=== PATIENT | female | born 1930 | race Caucasian/White ===

== ENCOUNTER 2017-11-21 18:09 | Emergency (ER) | payer MEDICARE, OTHER ==
[~2017-11-21] VITALS: Ht 162.6 cm; Wt 102.1 kg
--- NOTE | 2017-11-21 19:10 | RAD ---
PQRS Compliance Statement: One or more of the following individualized dose reduction techniques were utilized for this examination: 1. Automated exposure control 2. Adjustment of the mA and/or kV according to patient size 3. Use of iterative reconstruction technique CT head and cervical spine without contrast 11/21/2017 6:42 PM INDICATION: Fall with head and neck pain. History of vascular disease. COMPARISON: None available TECHNIQUE: Multiple axial CT images of the head were obtained from skull base through the vertex without intravenous contrast. Multiple axial CT images of the cervical spine were obtained without intravenous contrast. Coronal and sagittal reformats are provided. FINDINGS: Head: Ventricles, sulci and basal cisterns are mildly prominent compatible with generalized cerebral volume loss. Low-attenuation in the periventricular white matter is suggestive of chronic small vessel ischemic changes. There is no hydrocephalus. Ma-white matter differentiation is normal. There is no acute intracranial hemorrhage. There is minimal prominence of the right frontal extra-axial space with attenuation similar to that of CSF. This may represent a prominent extra-axial space versus subdural hygroma. There is no mass, mass effect or midline shift. Posterior fossa is normal in appearance. Visualized portions of the orbits are normal with exception of bilateral lens replacement. Paranasal sinuses are well aerated. Mastoid air cells are well aerated. Scalp and calvaria are normal. Cervical spine: Skull base is intact. Craniocervical junction is normal in appearance. Atlantoaxial articulation is normal. Vertebral body heights are maintained without evidence for acute fracture. There is minimal retrolisthesis of C4 on C5. There is moderate to advanced disc height loss at C3-C4, C4-C5, C5-C6 and C6-C7. There is osseous fusion of the facet joints at C2-C3 on the right. At C3-C4, there is a posterior disc osteophyte complex asymmetric to the left with moderate facet arthropathy and advanced uncovertebral joint disease resulting in severe left neuroforaminal stenosis and mild spinal canal stenosis. At C4-C5, there is a posterior disc osteophyte complex with severe left and moderate right facet arthropathy and severe left and moderate right uncovertebral joint disease resulting in moderate to severe left neuroforaminal stenosis. At C5-C6, there is a posterior disc osteophyte complex with mild to moderate facet arthropathy and moderate uncovertebral joint disease resulting in moderate bilateral neuroforaminal stenosis and mild spinal canal stenosis. There is no prevertebral soft tissue swelling. There is retropharyngeal course of the right common carotid artery. Thyroid gland is normal in appearance. Visualized portions of the lung apices are normal without evidence for suspicious pulmonary nodule or infiltrate. IMPRESSION: 1. No acute intracranial hemorrhage. Mild generalized cerebral volume loss is identified. Low-attenuation in the periventricular white matter is suggestive of chronic small vessel ischemic changes. There is minimal prominence of the right frontal extra-axial space with attenuation similar to that of CSF. This may represent a prominent extra-axial space versus subdural hygroma. 2. No acute fracture of the cervical spine. There is minimal anterolisthesis of C4 on C5. There is moderate to advanced cervical spondylosis. Electronically signed by: Melissa Luu MD (11/21/2017 7:06 PM) [facility]
--- NOTE | 2017-11-21 19:56 | PHYS DOC ---
Past History Past Medical History: GERD, Other Past Surgical History: Lumbar Laminectomy Alcohol Use: None Drug Use: None Adult General Chief Complaint Chief Complaint: MECHANICAL FALL HPI HPI 87-year-old female presents with report of mechanical slip and fall just prior to arrival when patient was getting ready to go into local [facility]. Patient reports she ended up missing the curb and fell onto left side of her face. Reports ended up landing on left side of her face. Denies LOC. Reports some neck pain which was present prior to patient's fall. Reports use of aspirin. Also reports some pain to left knee and base of left thumb. Review of Systems Review of Systems Constitutional: Denies fever or chills [] Eyes: Denies change in visual acuity, redness, or eye pain [] HENT: Denies epistaxis or bleeding from ears, chipped left front tooth, abrasion to left upper lip Respiratory: Denies cough or shortness of breath [] Cardiovascular: Denies chest pain or palpitations or syncope GI: Denies abdominal pain, nausea, vomiting, bloody stools or diarrhea [] : Denies dysuria or hematuria [] Musculoskeletal: Reports some neck pain. Denies back pain. Denies deformity. Reports left knee pain and pain to base of left thumb. Integument: Denies laceration. Reports ecchymosis to left thumb. Reports abrasions to left knee. Neurologic: Reports headache; denies focal weakness or sensory changes [] Complete systems were reviewed and found to be within normal limits, except as documented in this note. Current Medications Current Medications Current Medications Medications (Trade) Dose Ordered Sig/Ginny Start Time Stop Time Status Last Admin Dose Admin Acetaminophen (Tylenol) 650 mg 1X ONCE 11/21/17 20:00 11/21/17 20:01 Allergies Allergies Allergies Coded Allergies Type Severity Reaction Last Updated Verified gabapentin Allergy Intermediate 11/21/17 Yes morphine Allergy Unknown 11/21/17 Yes Physical Exam Physical Exam Constitutional: Well developed, well nourished, no acute distress HENT: Normocephalic, bilateral external ears normal, oropharynx moist, nose normal. [] Eyes: PERRL, EOMI, conjunctiva normal, no discharge; chipped left maxillary lateral incisor, teeth otherwise intact, upper lip with abrasion, NO laceration , abrasion and swelling contained to mucosal surface Neck: Normal range of motion, Paraspinal tenderness noted[] Cardiovascular: Heart rate regular rhythm, no murmur [] Lungs & Thorax: Bilateral breath sounds clear to auscultation [] Abdomen: Soft, no tenderness Skin: Warm, dry, small abrasion to left knee, ecchymosis noted to base of left hand Back: No midline tenderness. Extremities: Pelvis stable, Nontender; NO deformity. Left hand with pain on palpation of left 1st metacarpal; Tenderness to left patella, Knee stable. Neurologic: Alert and oriented X 3, normal motor function, normal sensory function, no focal deficits noted. [] Psychologic: Affect normal, judgement normal, mood normal. [] Current Patient Data Vital Signs Vital Signs Date Time Temp Pulse Resp B/P (MAP) Pulse Ox O2 Delivery O2 Flow Rate FiO2 11/21/17 18:21 98.2 70 18 96 Room Air EKG EKG [] Radiology/Procedures Radiology/Procedures PROCEDURE: CT HEAD AND CERVICAL SPINE [facility] Compliance Statement: One or more of the following individualized dose reduction techniques were utilized for this examination: 1. Automated exposure control 2. Adjustment of the mA and/or kV according to patient size 3. Use of iterative reconstruction technique CT head and cervical spine without contrast 11/21/2017 6:42 PM INDICATION: Fall with head and neck pain. History of vascular disease. COMPARISON: None available TECHNIQUE: Multiple axial CT images of the head were obtained from skull base through the vertex without intravenous contrast. Multiple axial CT images of the cervical spine were obtained without intravenous contrast. Coronal and sagittal reformats are provided. FINDINGS: Head: Ventricles, sulci and basal cisterns are mildly prominent compatible with generalized cerebral volume loss. Low-attenuation in the periventricular white matter is suggestive of chronic small vessel ischemic changes. There is no hydrocephalus. Ma-white matter differentiation is normal. There is no acute intracranial hemorrhage. There is minimal prominence of the right frontal extra-axial space with attenuation similar to that of CSF. This may represent a prominent extra-axial space versus subdural hygroma. There is no mass, mass effect or midline shift. Posterior fossa is normal in appearance. Visualized portions of the orbits are normal with exception of bilateral lens replacement. Paranasal sinuses are well aerated. Mastoid air cells are well aerated. Scalp and calvaria are normal. Cervical spine: Skull base is intact. Craniocervical junction is normal in appearance. Atlantoaxial articulation is normal. Vertebral body heights are maintained without evidence for acute fracture. There is minimal retrolisthesis of C4 on C5. There is moderate to advanced disc height loss at C3-C4, C4-C5, C5-C6 and C6-C7. There is osseous fusion of the facet joints at C2-C3 on the right. At C3-C4, there is a posterior disc osteophyte complex asymmetric to the left with moderate facet arthropathy and advanced uncovertebral joint disease resulting in severe left neuroforaminal stenosis and mild spinal canal stenosis. At C4-C5, there is a posterior disc osteophyte complex with severe left and moderate right facet arthropathy and severe left and moderate right uncovertebral joint disease resulting in moderate to severe left neuroforaminal stenosis. At C5-C6, there is a posterior disc osteophyte complex with mild to moderate facet arthropathy and moderate uncovertebral joint disease resulting in moderate bilateral neuroforaminal stenosis and mild spinal canal stenosis. There is no prevertebral soft tissue swelling. There is retropharyngeal course of the right common carotid artery. Thyroid gland is normal in appearance. Visualized portions of the lung apices are normal without evidence for suspicious pulmonary nodule or infiltrate. IMPRESSION: 1. No acute intracranial hemorrhage. Mild generalized cerebral volume loss is identified. Low-attenuation in the periventricular white matter is suggestive of chronic small vessel ischemic changes. There is minimal prominence of the right frontal extra-axial space with attenuation similar to that of CSF. This may represent a prominent extra-axial space versus subdural hygroma. 2. No acute fracture of the cervical spine. There is minimal anterolisthesis of C4 on C5. There is moderate to advanced cervical spondylosis. Electronically signed by: Melissa Luu MD (11/21/2017 7:06 PM) [facility] LEFT KNEE XR and LEFT HAND XR: Preliminary interpretation by ED physician. No acute fracture or dislocation.. Course & Med Decision Making Course & Med Decision Making Pertinent Labs and Imaging studies reviewed. (See chart for details) Patient presents with report of mechanical slip and fall striking the left side of her face. Patient noted to have small abrasion to left upper lip. No laceration crossing the vermilion border. Patient does have a chipped lateral incisor on left. Patient does report use of aspirin daily. Patient neurologically intact. Patient also complaining of left thumb tenderness at base as well as left knee pain. CT head/maxillofacial/cervical spine without acute process. X-rays of left hand and left knee also without fracture or dislocation. Daniel wrap is applied to hand and knee. Symptomatic treatment provided. Patient stable for discharge with outpatient follow-up with PCP. Discussed findings and plan with patient and family, who acknowledge understanding and agreement. Dragon Disclaimer Dragon Disclaimer This electronic medical record was generated, in whole or in part, using a voice recognition dictation system. Departure Departure: Impression: Primary Impression: Fall Additional Impressions: Contusion of lip Hand sprain Knee contusion Chipped tooth Disposition: HOME, SELF-CARE Condition: STABLE Referrals: PCP,NO (PCP) Patient Instructions: Contusion, [id number], Fall Prevention and Home Safety , [id number], Thumb Sprain, Tooth Fracture Scripts Chlorhexidine Gluconate (PERIDEX) 15 Ml Mouthwash 15 ML PO BID, #946 ML Prov: AURELIA MCNAMARA DO 11/21/17 Amoxicillin/Potassium Clav (AUGMENTIN 875-125 TABLET) 1 Each Tablet 1 TAB PO BID, #14 TAB Prov: AURELIA MCNAMARA DO 11/21/17 Problem Qualifiers Primary Impression: Fall Encounter type: initial encounter Qualified Codes: W19.XXXA - Unspecified fall, initial encounter Additional Impressions: Contusion of lip Encounter type: initial encounter Qualified Codes: S00.531A - Contusion of lip, initial encounter Hand sprain Encounter type: initial encounter Laterality: left Qualified Codes: S63.92XA - Sprain of unspecified part of left wrist and hand, initial encounter Knee contusion Encounter type: initial encounter Laterality: left Qualified Codes: S80.02XA - Contusion of left knee, initial encounter Chipped tooth Encounter type: initial encounter Fracture type: open Qualified Codes: S02.5XXB - Fracture of tooth (traumatic), initial encounter for open fracture AURELIA MCNAMARA DO Nov 21, 2017 19:56
[2017-11-21] MEDS ORDERED: ACETAMINOPHEN 325 MG TABLET PO ONE (20:00)
[2017-11-21] MEDS ORDERED: AMOX1TAB61 PO (20:03)
[2017-11-21] MEDS ORDERED: CHLO15MO2 PO (20:03)
[2017-11-21 20:24] VITALS: BP 146/65
--- NOTE | 2017-11-22 07:47 | RAD ---
Examination: 3 views of the left hand HISTORY: History of pain status post fall COMPARISON: None available FINDINGS: The alignment of the carpal metacarpal joints, metacarpophalangeal joints, interphalangeal grossly appears unremarkable. There is moderate joint space loss identified in the carpal metacarpal joint, first metacarpophalangeal joint and the third metacarpophalangeal joint likely degeneration. Mild degenerative changes identified in the interphalangeal joints. No obvious acute fracture identified. 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 IMPRESSION: 1. No acute osseous findings. 2. Degenerative changes. Chondrocalcinosis of the triangular fibrocartilage. Electronically signed by: Agustin Aranda MD (11/22/2017 7:44 AM) [facility]
--- NOTE | 2017-11-22 07:49 | RAD ---
Examination: 3 views of the left knee HISTORY: History of fall, pain COMPARISON: None available FINDINGS: The alignment of the knee joint grossly appears unremarkable. There is no acute fracture or dislocation identified. Mild chondrocalcinosis of the medial, lateral meniscus identified. There is moderate joint space loss identified in the medial, lateral, patellofemoral compartments. IMPRESSION: 1. No acute osseous findings. 2. Chondrocalcinosis. 3. Moderate tricompartmental degenerative changes. Electronically signed by: Agustin Aranda MD (11/22/2017 7:45 AM) [facility]
== END 2017-11-21 20:31 | disposition home or self-care (01) ==
LOC: ER 18:09
DX: S02.5XXA Fracture of tooth (traumatic), initial encounter for closed fracture (principal); S63.92XA Sprain of unspecified part of left wrist and hand, initial encounter; S80.02XA Contusion of left knee, initial encounter; S00.531A Contusion of lip, initial encounter; M54.2 Cervicalgia; R51 Headache; K21.9 Gastro-esophageal reflux disease without esophagitis; W01.198A Fall on same level from slipping, tripping and stumbling with subsequent striking against other object, initial encounter; Y93.89 Activity, other specified; Y92.89 Other specified places as the place of occurrence of the external cause; Y99.8 Other external cause status
CPT/HCPCS: 70450; 72125; 73130; 73562; 99284-25

== ENCOUNTER → 2018-05-19 | Outpatient (CLI) | payer MEDICARE, OTHER ==
[~2018-05-19] MED LIST: AMOX1TAB61 PO; CHLO15MO2 PO
== END | disposition home or self-care (01) ==
LOC: EDSEX → SURG 10:39
PROVIDERS: ATTEND Anesthesiology
DX: M48.56XD Collapsed vertebra, not elsewhere classified, lumbar region, subsequent encounter for fracture with routine healing (principal); M54.5 Low back pain
CPT/HCPCS: 99213

== ENCOUNTER → 2018-06-23 | Outpatient (CLI) | payer MEDICARE, OTHER ==
[~2018-06-23] MED LIST changes: +0.9 % SODIUM CHLORIDE 10 ML VIAL ONE; +BUPIVACAINE MPF 0.25% 10 ML VIAL. ONE; +DEXAMETHASONE SOD PHOS 10 MG/ML VIAL ONE; +IOHEXOL 300 MG/ML 50 ML VIAL. ONE; +LIDOCAINE 1% PF 30 ML VIAL. ONE
== END | disposition home or self-care (01) ==
LOC: SURG 12:44
PROVIDERS: ATTEND Anesthesiology
DX: M54.16 Radiculopathy, lumbar region (principal); M19.90 Unspecified osteoarthritis, unspecified site; Z88.6 Allergy status to analgesic agent; Z88.5 Allergy status to narcotic agent; Z88.8 Allergy status to other drugs, medicaments and biological substances; Z91.011 Allergy to milk products; Z87.19 Personal history of other diseases of the digestive system; Z98.890 Other specified postprocedural states
CPT/HCPCS: 62323; J1100; J2001; J3490; Q9967

== ENCOUNTER → 2018-07-21 | Outpatient (CLI) | payer MEDICARE, OTHER ==
[~2018-07-21] MED LIST changes: -0.9 % SODIUM CHLORIDE 10 ML VIAL ONE; -DEXAMETHASONE SOD PHOS 10 MG/ML VIAL ONE; -IOHEXOL 300 MG/ML 50 ML VIAL. ONE
== END | disposition home or self-care (01) ==
LOC: SURG 11:09
PROVIDERS: ATTEND Anesthesiology
DX: M47.816 Spondylosis without myelopathy or radiculopathy, lumbar region (principal); Z87.81 Personal history of (healed) traumatic fracture; M79.2 Neuralgia and neuritis, unspecified; Z79.82 Long term (current) use of aspirin; Z79.899 Other long term (current) drug therapy; M19.90 Unspecified osteoarthritis, unspecified site; Z90.49 Acquired absence of other specified parts of digestive tract; Z98.890 Other specified postprocedural states; Z88.5 Allergy status to narcotic agent; Z88.8 Allergy status to other drugs, medicaments and biological substances
CPT/HCPCS: 64493; 64494; J2001; J3490

== ENCOUNTER 2020-05-27 20:05 | Emergency (ER) | payer MEDICARE, OTHER ==
[~2020-05-27] VITALS: Ht 152.4 cm; Wt 88.6 kg
[~2020-05-27 20:05] MED LIST changes: -BUPIVACAINE MPF 0.25% 10 ML VIAL. ONE; -LIDOCAINE 1% PF 30 ML VIAL. ONE
--- NOTE | 2020-05-27 20:42 | PHYS DOC ---
Past History Past Medical History: A-Fib, Anemia, GERD, Kidney Stones, Other Additional Past Medical Histor: NEUROPATHY (NARAYAN GRECO APRN) Past Surgical History: Appendectomy, Cholecystectomy, , Hysterectomy, Lumbar Laminectomy (NARAYAN GRECO APRN) Alcohol Use: None Drug Use: None (NARAYAN GRECO APRN) General Adult EDM: Chief Complaint: OTHER COMPLAINTS HPI: HPI: Patient is a 89-year-old female who presents with nausea, shortness of breath and feeling like her heart is fluttering. Symptoms began at noon today. Patient denies chest pain or dizziness. She reports taking Pepto-Bismol for nausea at home. Denies nausea at this time.Patient states that she does have a history of A. fib. Patient is denying any symptoms at this time. (NARAYAN GRECO APRN) Review of Systems: Review of Systems: Constitutional: Denies fever or chills Eyes: Denies change in visual acuity HENT: Denies nasal congestion or sore throat Respiratory: Denies cough, reports shortness of breath Cardiovascular: Denies chest pain or edema GI: Denies abdominal pain, nausea, vomiting, bloody stools or diarrhea : Denies dysuria Musculoskeletal: Denies back pain or joint pain Integument: Denies rash Neurologic: Denies headache, focal weakness or sensory changes Endocrine: Denies polyuria or polydipsia Lymphatic: Denies swollen glands Psychiatric: Denies depression or anxiety (NARAYAN GRECO APRN) Allergies: Allergies: Allergies Coded Allergies Type Severity Reaction Last Updated Verified gabapentin Allergy Intermediate 11/21/17 Yes Naxpezu-Xaz-Fry Reductase Inhibitor Allergy Unknown 05/27/20 Yes clarithromycin Allergy Unknown 05/27/20 Yes ezetimibe Allergy Unknown 05/27/20 Yes milk Allergy Unknown 05/27/20 Yes morphine Allergy Unknown 11/21/17 Yes pregabalin Allergy Unknown 05/27/20 Yes (NARAYAN GRECO APRN) Physical Exam: PE: Constitutional: Well developed, well nourished, no acute distress, non-toxic appearance. [] HENT: Normocephalic, atraumatic, bilateral external ears normal, oropharynx moist, no oral exudates, nose normal. [] Eyes: PERRLA, EOMI, conjunctiva normal, no discharge. [] Neck: Normal range of motion, no tenderness, supple, no stridor. [] Cardiovascular:Heart rate regular rhythm, heart rate 76 bpm Lungs & Thorax: Bilateral breath sounds clear to auscultation [] Abdomen: Bowel sounds normal, soft, no tenderness, no masses, no pulsatile masses. [] Skin: Warm, dry, no erythema, no rash. [] Back: No tenderness, no CVA tenderness. [] Extremities: No tenderness, no cyanosis, no clubbing, ROM intact, no edema. [] Neurologic: Alert and oriented X 3, normal motor function, normal sensory function, no focal deficits noted. [] Psychologic: Affect normal, judgement normal, mood normal. [] (NARAYAN GRECO APRN) Current Patient Data: Vital Signs: Vital Signs Date Time Temp Pulse Resp B/P (MAP) Pulse Ox O2 Delivery O2 Flow Rate FiO2 05/27/20 20:23 98.9 80 22 155/63 (93) 98 Room Air (NARAYAN GRECO APRN) EKG: EKG: Sinus Rhythm, atrial premature complexes. HR 78 BPM. Read by [] (NARAYAN GRECO APRN) Radiology/Procedures: Radiology/Procedures: [] (NARAYAN GRECO APRN) Heart Score: HEART Score for Chest Pain: HEART Score for Chest Pain Response (Comments) Value History Moderately Suspicious 1 ECG Normal 0 Age > 65 2 Risk Factors 1 or 2 Risk Factors 1 Troponin < Normal Limit 0 Total 4 Risk Factors: Risk Factors: DM, Current or recent (<one month) smoker, HTN, HLP, family histo ry of CAD, obesity. Risk Scores: Score 0 - 3: 2.5% MACE over next 6 weeks - Discharge Home Score 4 - 6: 20.3% MACE over next 6 weeks - Admit for Clinical Observation Score 7 - 10: 72.7% MACE over next 6 weeks - Early Invasive Strategies (NARAYAN GRECO APRN) Course & Med Decision Making: Course & Med Decision Making Pertinent Labs and Imaging studies reviewed. (See chart for details) []Patient is a 89-year-old female who presents with nausea, shortness of breath and feeling like her heart is fluttering. Symptoms started at noon today. Patient denies chest pain or dizziness. She reports taking Pepto-Bismol for nausea at home. Denies nausea at this time.Patient states that she does have a history of A. fib. Patient is denying any symptoms at this time. Labs, UA, chest x-ray ordered. Heart score of 4. Chest x-ray is negative for any acute findings. Labs are unremarkable. Troponin is negative. Patient is discharged to home with instructions to follow-up with her primary care on Friday. Patient is to return to the emergency room if she has any increase in pain, shortness of breath or worsening symptoms. (NARAYAN GRECO APRN) Course & Med Decision Making I did not see or evaluate this patient. Agree with CONVEX GRINDER's plan and disposition per note (ELIUD MCGOVERN MD) Dragon Disclaimer: Dragon Disclaimer: This electronic medical record was generated, in whole or in part, using a voice recognition dictation system. (NARAYAN GRECO APRN) Departure Departure: Impression: Primary Impression: Fluttering sensation of heart Disposition: 01 DC HOME SELF CARE/HOMELESS Condition: GOOD Referrals: KELLY TOLEDO (PCP) Patient Instructions: Atrial Fibrillation, [id number] Additional Instructions: Chest x-ray is negative for any acute findings. Your labs are all unremarkable. She is to follow-up with your primary care physician on Friday to be reevaluated. Please return to the emergency room if she has any increase in pain, shortness of breath or worsening symptoms. NARAYAN GRECO APRN May 27, 2020 20:42 ELIUD MCGOVERN MD May 28, 2020 23:05
[2020-05-27 21:10] LABS: BASO % 0 % (0-3); EOS % 0 % (0-3); HEMATOCRIT 27.2 % (36.0-47.0); LYMPH # 2.7 x10^3/uL (1.0-4.8); LYMPH % 33 % (24-48); MEAN CORPUSCULAR HEMOGLOBIN 34 pg (25-35); MEAN CORPUSCULAR HGB CONC 33 g/dL (31-37); MEAN CORPUSCULAR VOLUME 104 fL (79-100); MONO # 0.6 x10^3/uL (0.0-1.1); MONO % 7 % (0-9); NEUT # 4.9 x10^3uL (1.8-7.7); NEUT % 60 % (31-73); PLATELET COUNT 358 x10^3/uL (140-400); RED BLOOD COUNT 2.61 x10^6/uL (3.50-5.40); RED CELL DISTRIBUTION WIDTH 16.8 % (11.5-14.5); WHITE BLOOD COUNT 8.1 x10^3/uL (4.0-11.0)
[2020-05-27 21:17] LABS: CALCIUM 8.6 mg/dL (8.5-10.1); CREATININE 0.9 mg/dL (0.6-1.0); POTASSIUM 3.7 mmol/L (3.5-5.1)
[2020-05-27 21:29] LABS: ALBUMIN/GLOBULIN RATIO 1.7 (1.0-1.7); TOTAL BILIRUBIN 0.6 mg/dL (0.2-1.0); TOTAL PROTEIN 6.4 g/dL (6.4-8.2)
[2020-05-27 21:41] LABS: ANISOCYTOSIS SLIGHT; POIKILOCYTOSIS SLIGHT
[2020-05-27 21:42] LABS: TEAR DROP CELLS OCC
[2020-05-27 21:43] LABS: OVALOCYTES OCC; PLT ESTIMATE ADEQUATE (ADEQUATE)
--- NOTE | 2020-05-27 21:43 | RAD ---
AP chest. HISTORY: Nausea, irregular heart rate AP view was taken of the chest. Heart is normal in size. There is no effusion. There are no confluent infiltrates. IMPRESSION: 1. No acute infiltrates. Electronically signed by: Feliz Hummel MD (05/27/2020 9:40 PM) [facility]
[2020-05-27 21:44] LABS: SCHISTOCYTES OCC
[2020-05-27 22:00] VITALS: BP 160/55
[2020-05-27 22:02] LABS: BILIRUBIN,URINE NEG (NEG); CLARITY,URINE CLEAR; COLOR,URINE COLORLESS; GLUCOSE,URINE NEG (NEG)
[2020-05-27 22:03] LABS: BACTERIA,URINE 0 /HPF (0-FEW); NITRITE,URINE NEG (NEG); RBC,URINE 0 /HPF (0-2); UROBILINOGEN,URINE 0.2 mg/dL (0.2 mg/dL); WBC,URINE 0 /HPF (0-4)
--- NOTE | 2020-05-28 13:44 | EKG ---
[address] [address] Test Date: 2020-05-27 Test Time: 20:16:04 Pat Name: LASHANDA GARNETT Department: Room: Gender: F Yarn Conditioner: MAURO : 1930 Requested By: NARAYAN GRECO Order Number: [id number] Reading MD: Ernesto Hassan Measurements Intervals [place] Rate: 78 P: 41 IA: 184 QRS: 15 QRSD: 94 T: 17 QT: 406 QTc: 467 Interpretive Statements SINUS RHYTHM ATRIAL PREMATURE COMPLEX(ES) Electronically Signed On 05-29-2020 10:07:48 [employer] by Ernesto Hassan
== END 2020-05-27 22:13 ==
LOC: ER 20:05
DX: I49.8 Other specified cardiac arrhythmias (principal); R11.0 Nausea; R06.02 Shortness of breath; I48.91 Unspecified atrial fibrillation; K21.9 Gastro-esophageal reflux disease without esophagitis; Z88.1 Allergy status to other antibiotic agents; Z88.5 Allergy status to narcotic agent; Z88.8 Allergy status to other drugs, medicaments and biological substances; Z91.041 Radiographic dye allergy status; Z91.011 Allergy to milk products
CPT/HCPCS: 36415; 71045; 80053; 81001; 84484; 85025; 93005; 99285-25